=== PATIENT | female | born 1960 | race Caucasian/White ===

== ENCOUNTER 2024-02-02 09:30 | Day surgery (SDC) | payer MEDICAID ==
[~2024-02-02] VITALS: Ht 157.5 cm; Wt 59.0 kg
[~2024-02-02 09:30] MED LIST: BALANCED SALT IRRIG SOLN COMB1 500ML OP NR; HYALURONATE SODIUM 10 MG/ML 0.55ML SYRINGE IO ONE
[2024-02-02] MEDS ORDERED: CYCLOPENTOLATE HCL 1% OPHTH DROPS 2ML RIGHTEYE NR (10:45)
[2024-02-02] MEDS ORDERED: PHENYLEPHRINE HCL 10% OPHTH DROPS 5ML RIGHTEYE NR (10:45)
[2024-02-02] MEDS ORDERED: TROPICAMIDE 1% OPHTH DROPS 15ML RIGHTEYE NR (10:45)
[2024-02-02] MEDS ORDERED: METF-414 PO (11:05)
[2024-02-02] MEDS ORDERED: ENAL-77 PO (11:05)
[2024-02-02] MEDS ORDERED: GLYB2.5T4 PO (11:05)
[2024-02-02] MEDS ORDERED: SODIUM CHLORIDE 0.9% 1,000 ML IV SCH (11:15)
[2024-02-02] MEDS ORDERED: TRYPAN BLUE 0.5 ML DISP.SYRIN IO ONE (11:41)
[2024-02-02] MEDS ORDERED: FENTANYL CITRATE/PF 50MCG/ML 2ML VIAL ONE (13:06)
[2024-02-02] MEDS ORDERED: MIDAZOLAM HCL 2 MG/2 ML VIAL ONE (13:06)
[2024-02-02] MEDS ORDERED: PROPOFOL 200MG/20ML VIAL IV ONE (13:06)
[2024-02-02] MEDS ORDERED: ONDANSETRON HCL 4MG/2ML INJ IV PRN (13:15)
[2024-02-02] MEDS ORDERED: HYDROMORPHONE HCL/PF 2MG/ML CPJ IV PRN (13:15)
[2024-02-02] MEDS ORDERED: LABETALOL 5MG/ML SYR 20 MG/4 ML SYRINGE IV PRN (13:15)
[2024-02-02] MEDS ORDERED: MEPERIDINE HCL/PF 25MG/ML CPJ IV PRN (13:15)
[2024-02-02] MEDS ORDERED: HYALURONATE SODIUM 10 MG/ML 0.55ML SYRINGE IO ONE (14:12)
[2024-02-02] MEDS: ACETAMINOPHEN 325MG TABLET PO NR (14:33)
== END 2024-02-02 15:20 | disposition home or self-care (01) ==
LOC: OR 09:30
PROVIDERS: ATTEND Ophthalmology
DX: E11.36 Type 2 diabetes mellitus with diabetic cataract (principal); H25.21 Age-related cataract, morgagnian type, right eye; I10 Essential (primary) hypertension; Z79.84 Long term (current) use of oral hypoglycemic drugs; Z79.899 Other long term (current) drug therapy; Z98.890 Other specified postprocedural states
CPT/HCPCS: 66984; 82962; J3010; J2250; J2704; J3490; V2632; Q9957

== ENCOUNTER → 2024-03-22 | Day surgery (SDC) | payer MEDICAID ==
[~2024-03-22] VITALS: Ht 157.5 cm; Wt 59.0 kg
[~2024-03-22] MED LIST changes: +BALANCED SALT IRRIG SOLN 15ML ONE; -BALANCED SALT IRRIG SOLN COMB1 500ML OP NR; +BALANCED SALT IRRIG SOLN COMB1 500ML OP SCH; +CYCLOPENTOLATE HCL 1% OPHTH DROPS 2ML LEFTEYE SCH; +ENAL-77 PO; +FENTANYL CITRATE/PF 50MCG/ML 2ML VIAL ONE; +GLYB2.5T4 PO; +METF-414 PO; +PHENYLEPHRINE HCL 10% OPHTH DROPS 5ML LEFTEYE SCH; +PROPOFOL 200MG/20ML VIAL IV ONE; +TRIAMCINOLONE ACETONIDE 40MG/ML 1ML VIAL ONE; +TROPICAMIDE 1% OPHTH DROPS 15ML LEFTEYE SCH; +TRYPAN BLUE 0.5 ML DISP.SYRIN IO ONE
[2024-03-22 11:00] LABS: HEMATOCRIT. 35.7 % (36.0-48.0); HEMOGLOBIN. 12.1 g/dL (12.0-16.0); LYMPHOCYTES % 37.2 % (20.0-50.0); MEAN CORPUSCULAR HEMOGLOBIN 29.3 pg (28.0-32.0); MEAN CORPUSCULAR HGB CONC 33.8 g/dL (31.0-37.0); MEAN CORPUSCULAR VOLUME 86.5 fL (81.0-99.0); MEAN PLATELET VOLUME 7.7 fl (7.4-10.4); MONOCYTES % 5.4 % (2.0-8.0); NEUTROPHILS % 53.4 % (40.0-76.0); PLATELET 400 x1000/uL (130-400); RED BLOOD CELL COUNT 4.12 mill/uL (4.2-5.4); RED CELL DISTRIBUTION WIDTH 13.8 % (11.6-14.6); WHITE BLOOD COUNT 9.6 x1000/uL (4.5-11.0)
[2024-03-22 11:07] LABS: POTASSIUM 5.3 mEq/L (3.5-5.1)
[2024-03-22 11:08] LABS: CALCIUM 10.6 mg/dL (8.7-10.4)
[2024-03-22] MEDS: SODIUM CHLORIDE 0.9% 1,000 ML IV SCH (12:09)
[2024-03-22] MEDS: ONDANSETRON HCL 4MG/2ML INJ IV PRN (16:02)
== END | disposition home or self-care (01) ==
LOC: OR 10:14
PROVIDERS: ATTEND Ophthalmology
DX: E11.36 Type 2 diabetes mellitus with diabetic cataract (principal); H25.22 Age-related cataract, morgagnian type, left eye; I10 Essential (primary) hypertension; Z79.84 Long term (current) use of oral hypoglycemic drugs; Z79.899 Other long term (current) drug therapy; Z98.890 Other specified postprocedural states
CPT/HCPCS: 66984; 93005; 80048; 85025; 36415; J3010; J3490 ×3; J2405; J2704; J3301; V2632; Q9957